=== PATIENT | female | born 2000 | race Caucasian/White ===

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

== ENCOUNTER 2022-02-03 13:15 | Emergency (ER) | payer OTHER ==
[~2022-02-03 13:15] MED LIST changes: +CLARITIN10 MG PO; +FEOSOL325 MG PO; +FERROUS SULFAT325 MG PO
[2022-02-03] MEDS ORDERED: PREPARATION H1 EAC1 PR (14:15)
[2022-02-03] MEDS ORDERED: IBUPROFEN600 MG PO (14:15)
[2022-02-03 14:22] LABS: HEMOGLOBIN 13.8 gm/dl (12.3-15.3); RED BLOOD COUNT 4.3 M/UL (4.00-5.10); WHITE BLOOD COUNT 6.5 K/UL (4.5-11.0)
== END 2022-02-03 15:02 | disposition home or self-care (01) ==
LOC: ER1 13:15
PROVIDERS: Physician Assistant
DX: K60.0 Acute anal fissure (principal); Z88.8 Allergy status to other drugs, medicaments and biological substances
CPT/HCPCS: 85025; 99283